=== PATIENT | male | born 1935 | race Caucasian/White ===

== ENCOUNTER → 2016-04-20 | Outpatient (CLI) | payer MEDICARE, OTHER ==
--- NOTE | 2016-04-20 10:32 | CT ---
Study: CT of the Head. Indication: UNSPECIFIED INJURY OF HEAD Technique: Axial CT images of the head were acquired without intravenous contrast. Comparison: None. Findings: No CT evidence of acute ischemia, acute hemorrhage, mass, mass effect, midline shift, or extra-axial fluid collection. Ventricles are normal in configuration without hydrocephalus. Patchy hypoattenuation of the periventricular and subcortical white matter noted. This is nonspecific but most consistent with chronic microvascular ischemic change. Global parenchymal volume loss and intracranial atherosclerosis noted as well. Paranasal sinuses are adequately aerated. Mastoid air cells are adequately aerated. Prior left frontal craniotomy noted. Impression: 1. No CT evidence of acute intracranial abnormality. 2. Senescent changes. Electronically signed by: Napoleon Estrada MD 04/20/2016 10:31
== END | disposition home or self-care (01) ==
LOC: CT 10:07
PROVIDERS: ATTEND General Practice
DX: S09.90XA Unspecified injury of head, initial encounter (principal)

== ENCOUNTER → 2017-05-06 | Outpatient (CLI) | payer MEDICARE, OTHER ==
--- NOTE | 2017-05-06 21:11 | MRI ---
EXAM DESCRIPTION: Lumbar Spine w/o Contrast MRI. CLINICAL HISTORY: Radiculopathy, lumbosacral region COMPARISON: MRI scan of the pelvis on the same visit. TECHNIQUE: Multiplanar, multiple standard sequences, non contrast MRI, lumbar spine. FINDINGS: L5-S1: Disc desiccation with tiny posterior bulge. Mild right facet arthrosis and moderate on the left with ligament hypertrophy more left than right. Bilateral facet and disc bulging resulting in borderline mild stenosis on the left and moderate stenosis on the right. Mild canal narrowing. L4-5: Moderate disc space loss. Anterior disc bulge and endplate ridging. Anterior Modic type II endplate reactive changes also extending to the right with disc osteophyte complex encroaching on the right foramen and mild foraminal stenosis. Posterior midline and left paracentral 4 mm disc bulge narrowing the canal and abutting the descending left L5 nerve narrowing the left subarticular recess. Moderate left foraminal narrowing. Bilateral facet arthrosis more on the left and ligament hypertrophy also on the left. L3-4: Moderate disc space loss with minimal anterior bulging and endplate ridging. Modic type II endplate reactive changes more on the right. Superior anterior endplate Schmorl's nodes. Trace anterolisthesis with posterior disc osteophyte complex bulging 4 to 5 mm in the midline, canal nearly mildly stenotic. Facet and flavum ligament hypertrophy more on the right. Mild to moderate right foraminal stenosis by disc spur complex and facet spur. Moderate narrowing of the left foramen by facet spur. L2-3: Disc desiccation and minimal anterior and posterior disc space loss. Anterior bulge and endplate ridging. Grade 2 endplate reactive changes with Schmorl's nodes in the L2 and L3 endplates. Posterior 4 mm disc osteophyte complex is broad-based. Moderate facet arthrosis and ligament hypertrophy. Canal nearly mildly stenotic. Mild to moderate right foraminal narrowing. Left side disc spur complex resulting in moderate left foraminal narrowing. L1-2: Disc desiccation no disc space loss. Tiny posterior bulge and trace retrolisthesis. Bilateral mild foraminal narrowing. Mild to moderate facet arthrosis and ligament hypertrophy more on the left with mild to moderate canal narrowing more on the left. T12-L1: Disc desiccation and anterior bulging and endplate ridging. Anterior minimal Modic type II endplate reactive changes. Borderline retrolisthesis. Posterior disc bulge 4 mm to the right of midline with mild canal narrowing. Mild right foraminal narrowing and moderate left foraminal narrowing. Conus terminates at L1. Paravertebral soft tissues show muscle atrophy. Otherwise normal marrow signal in the remaining vertebral bodies and the posterior elements. Vertebral bodies are not compressed at any level. IMPRESSION: 1. Multiple levels of spondylosis, disc desiccation, disc bulge, facet arthrosis and flavum ligament hypertrophy. 2. Bilateral facet arthrosis and disc bulging at L5-S1 resulting in borderline mild left foraminal stenosis and moderate right foraminal stenosis. 3. Posterior midline and left paracentral L4-5 disc bulge abutting the left subarticular recess and the descending left L5 nerve. Anterior and right side moderate spondylosis. 4. Moderate spondylosis at L3-4 more on the right. Posterior disc bulging in the midline. Canal nearly stenotic. Mild to moderate right foraminal stenosis by disc spur complex and facet spur. 5. Posterior broad-based L2-3 disc complex bulge. Left side disc spur complex and moderate left foraminal narrowing. Electronically signed by: Gaurang Farooq MD 05/06/2017 9:11 PM [facility]
--- NOTE | 2017-05-06 21:20 | MRI ---
EXAM DESCRIPTION: Pelvis w/o Contrast MRI. CLINICAL HISTORY: Pelvic and perineal pain COMPARISON: Lumbar MRI on the same visit. TECHNIQUE: Multiplanar, multiple standard sequences, non contrast MRI, bony pelvis.Lee protocol utilized due to right total hip arthroplasty. FINDINGS: Magnetic susceptibility artifact due to right total hip arthroplasty. No effusion in the left hip joint. Minimal narrowing of the superior joint space. No subchondral edema. Normal marrow signal in the included pelvic bones including the pubic symphysis. Normal signal in the included coccyx. Included SI joints bilaterally are unremarkable. Muscle atrophy is present. No soft tissue masses. No soft tissue masses or large fluid collections around the arthroplasty site. IMPRESSION: 1. Right total hip arthroplasty with metallic susceptibility artifact, but no large soft tissue mass or fluid collection noted. 2. Minimal narrowing of the superior left hip joint space. No joint effusion subchondral edema. 3. Included osseous structures show no abnormal marrow edema. No joint effusions. No fluid collections in the soft tissues. Minimal muscle atrophy. Electronically signed by: Gaurang Farooq MD 05/06/2017 9:20 PM [facility] Workstation: [id number]
== END ==
LOC: MRI 10:00
PROVIDERS: ATTEND Nurse Practitioner
DX: M54.17 Radiculopathy, lumbosacral region (principal); R10.2 Pelvic and perineal pain; M51.27 Other intervertebral disc displacement, lumbosacral region; M47.896 Other spondylosis, lumbar region; Z96.641 Presence of right artificial hip joint

== ENCOUNTER → 2019-11-01 | Outpatient (CLI) | payer MEDICARE, OTHER | END | disposition home or self-care (01) | LOC: LAB.O 12:43 | PROVIDERS: ATTEND Surgery | DX: C80.1 Malignant (primary) neoplasm, unspecified (principal) ==

== ENCOUNTER → 2019-11-07 | Outpatient (CLI) | payer MEDICARE, OTHER ==
--- NOTE | 2019-11-08 11:31 | CT ---
EXAM DESCRIPTION: Abdomen w/o Contrast CLINICAL HISTORY: 84 years Male, ABD PAIN COMPARISON: None. TECHNIQUE: CT of the abdomen acquired without IV contrast material. Coronal and sagittal reformations provided. This exam was performed according to our departmental dose-optimization program, which includes automated exposure control, adjustment of the mA and/or kV according to patient size and/or use of iterative reconstruction technique. FINDINGS: Lung bases: Bibasilar scarring and atelectasis, right and left lower lobes. Limited evaluation of the solid organs secondary to the lack of intravenous contrast. Solid Organs: Unremarkable noncontrast appearance of the liver, spleen, pancreas. Mild hypertrophy of the adrenal glands. Gallbladder surgically absent without biliary ductal dilatation. Unremarkable kidneys with no stone within the kidneys or visualized ureters. No hydronephroureter. Infection. GI tract: Small hiatal hernia. Stomach moderately distended gastric content containing air-fluid level. No obstruction of visualized bowel. Moderate colonic stool. Vascular: Moderate atherosclerosis. Musculoskeletal and soft tissues: No acute fracture or aggressive appearing osseous lesion. Small fat-containing supraumbilical hernia to the right of midline measuring 2.8 cm with the ventral defect measuring 1.3 cm. Other: None. IMPRESSION: 1. No acute abnormality of the abdomen or pelvis on this noncontrast study. 2. Stomach moderately distended with air-fluid level which may be secondary to delayed gastric emptying or gastroparesis. 3. Small hiatal hernia. 4. Small fat-containing supraumbilical hernia to the right midline. Electronically signed by: Checo Landis MD 11/08/2019 11:29 AM CDT
== END ==
LOC: CT 12:59
PROVIDERS: ATTEND General Practice
DX: K44.9 Diaphragmatic hernia without obstruction or gangrene (principal); K42.9 Umbilical hernia without obstruction or gangrene; K31.9 Disease of stomach and duodenum, unspecified